=== PATIENT | female | born 1955 | race Hispanic/Latino ===

== ENCOUNTER → 2020-07-07 | Outpatient (CLI) | payer OTHER | END | disposition home or self-care (01) | LOC: RAH 13:11 | PROVIDERS: ATTEND Family Medicine | DX: D25.9 Leiomyoma of uterus, unspecified (principal); R10.31 Right lower quadrant pain; R10.11 Right upper quadrant pain | CPT/HCPCS: 76830 ==

== ENCOUNTER → 2021-01-01 | Outpatient (CLI) | payer MEDICARE ==
[~2021-01-01] MED LIST: IOHEXOL-350 75 ML VIAL IV ONE
== END | disposition home or self-care (01) ==
LOC: RAH 08:57
PROVIDERS: ATTEND Specialist
DX: R10.13 Epigastric pain (principal); Z90.11 Acquired absence of right breast and nipple
CPT/HCPCS: 74178; Q9967

== ENCOUNTER → 2021-06-22 | Outpatient (CLI) | payer OTHER | END | disposition home or self-care (01) | LOC: RAH 14:33 | PROVIDERS: ATTEND Family Medicine | DX: Z13.6 Encounter for screening for cardiovascular disorders (principal) | CPT/HCPCS: 75571 ==

== ENCOUNTER → 2022-07-21 | Outpatient (CLI) | payer MEDICARE | END | disposition home or self-care (01) | LOC: RAH 12:58 | PROVIDERS: ATTEND Family Medicine | DX: I73.9 Peripheral vascular disease, unspecified (principal) | CPT/HCPCS: 93922 ==

== ENCOUNTER → 2023-01-24 | Outpatient (CLI) | payer MEDICARE | END | disposition home or self-care (01) | LOC: SHCH 13:35 | PROVIDERS: ATTEND Internal Medicine Cardiovascular Disease | DX: I87.2 Venous insufficiency (chronic) (peripheral) (principal) | CPT/HCPCS: 93970 ==

== ENCOUNTER → 2024-03-25 | Outpatient (CLI) | payer MEDICARE | END | disposition home or self-care (01) | LOC: RAH 11:03 | PROVIDERS: ATTEND Family Medicine | DX: R10.31 Right lower quadrant pain (principal) | CPT/HCPCS: 76856 ==